=== PATIENT | female | born 1950 | race Caucasian/White ===

== ENCOUNTER 2017-03-02 11:55 | Emergency (ER) | payer OTHER ==
[~2017-03-02] VITALS: Ht 165.1 cm; Wt 72.6 kg
[~2017-03-02 11:55] MED LIST: KEFLEX500 M1 PO
[2017-03-02 12:00] VITALS: BP 152/81
--- NOTE | 2017-03-02 12:07 | ED ANIMAL BITE/WOUND CHECK ---
History of Present Illness General Chief Complaint: Suture Removal/Wound Recheck Stated Complaint: SUTURE REMOVAL Source: patient, old records Exam Limitations: no limitations Vital Signs & Intake/Output Vital Signs & Intake/Output Vital Signs Date Time Temp Pulse Resp B/P B/P Pulse O2 O2 Flow FiO2 Mean Ox Delivery Rate 03/02 1200 96.7 83 20 152/81 96 Room Air Allergies Coded Allergies: Sulfa (Sulfonamide Antibiotics) (RASH 02/22/17) Reconcile Medications Cephalexin (Keflex) 500 MG CAPSULE 1 CAP PO TID ppx Triage Note: SUTURE REMOVAL FROM RIGHT PINKY FINGER Triage Nurses Notes Reviewed? yes Onset: Abrupt Duration: week(s): (1), better Timing: recent history Injury Environment: home Is Injury an Animal Bite? No Severity: mild Severity Numbers: 1 No Modifying Factors: none Associated Symptoms: denies HPI: 67-year-old female presents for suture removal status post sustaining a laceration one week ago for which she was seen by myself regarding 8 sutures to the right fifth finger. She denies any complaints discharge fever. No complications no difficulty with with range of motion she denies pain (Jah Taylor) Past History Travel History Traveled to [place] past 21 day No Medical History Any Pertinent Medical History? see below for history Neurological: NONE EENT: DRY EYES Cardiovascular: hyperlipidemia Respiratory: NONE Gastrointestinal: NONE Hepatic: NONE Renal: NONE Musculoskeletal: BACK SPASMS Psychiatric: NONE Endocrine: NONE Tetanus Vaccine: 02/22/17 Surgical History Surgical History: non-contributory Psychosocial History Who do you live with Spouse What is your primary language Kyrgyz Tobacco Use: Never used ETOH Use: occasional use Illicit Drug Use: denies illicit drug use Family History Hx Contributory? No (Jah Taylor) Review of Systems Review of Systems Constitutional: Reports: see HPI. Comments Review of systems: See HPI, All other systems negative. Constitutional, no chills no fever, HEENT: no sore throat Cardiovascular: No chest mary Skin: no rashes, no change in skin Respiratory: No dyspnea no cough Muscle skeletal: No joint pain, no back pain, no neck pain, Neurologic: , no headache Heme/endocrine: No bruising (Jah Taylor) Physical Exam Physical Exam General Appearance: well developed/nourished, no apparent distress, alert Comments: Well-developed well-nourished patient in no apparent distress. HEENT: Atraumatic, extraocular motion intact Neck: Supple, FROM Back: FROM Respiratory: No respiratory distress. Patient speaking in full complete sentences Extremities: [address] to the right distal fifth finger, there is scabs in place there is no surrounding erythema induration or fluctuance, patient has full sensation, full range of motion Neuro: awake, alert, and oriented to person, place and time. There were no obvious focal neurologic abnormalities. Skin: Warm & dry;No appreciable rash on exposed skin Psych: Mood affect normal, normal memory normal judgment. (Jah Taylor) Progress Differential Diagnosis: abscess, cellulitis, joint infection, tenosysnovitis Plan of Care: 8 sutures removed by me there is no wound DEhiscence. pt tolerated well. I discussed with the patient at length plan of care I had an extensive conversation regarding need for close follow up with their primary care physician this week as well as return precautions. I answered all of their questions, they feel comfortable with the plan and follow-up care. (Jah Taylor) Departure Departure Time of Disposition: 1222 Disposition: HOME OR SELF CARE Condition: Stable Clinical Impression Primary Impression: Visit for suture removal Referrals: Johan CORCORAN,Corey Munguia (PCP/Family) Additional Instructions: Follow up with her primary care physician or return to ER with any concerns or signs of infection. Departure Forms: Customer Survey General Discharge Information (Jah Taylor) PA/SENIOR POWER SCHEDULER Co-Sign Statement Statement: ED Attending supervision documentation- [] I saw and evaluated the patient. I have also reviewed all the pertinent lab results and diagnostic results. I agree with the findings and the plan of care as documented in the PA's/SENIOR POWER SCHEDULER's documentation. [X] I have reviewed the ED Record and agree with the PA's/SENIOR POWER SCHEDULER's documentation. [] Additions or exceptions (if any) to the PAs/SENIOR POWER SCHEDULER's note and plan are summarized below: [] (Lydia CORCORAN,Romario Chow)
== END 2017-03-02 12:43 ==
LOC: ERH 11:55
DX: S61.216A Laceration without foreign body of right little finger without damage to nail, initial encounter (principal); X58.XXXA Exposure to other specified factors, initial encounter; Y92.9 Unspecified place or not applicable; Y93.9 Activity, unspecified
CPT/HCPCS: 99281